=== PATIENT | male | born 1980 | race Caucasian/White ===

== ENCOUNTER → 2016-11-08 | Outpatient (REF) | payer MEDICARE, MEDICAID ==
[~2016-11-08] MED LIST: /ESCI20TA OR; /PANT40TA; ALBU17IN INH; ALLE25CA; BACI50OI EXT; BENZ1TA PO; BUDE150T; BUDE150T OR; CELE100C; CELE20TA; COGENTIN PO; DEPA250T2 PO; DEPA500T2 OR; DEPA500T2 PO; DEPAKOTE ER PO; DICL75TA PO; DOCU100C PO; DULCOLAX PO; KLON0.5T OR; LITH150C PO; LITH300C PO; MAALSUS18 PO; MINI1CAP PO; NALT50TA4 PO; NICO14DI3; NICO21DI4; NICO21DI5 TD; NO HOME MEDICATIONS; OLAN10TA2 PO; OLAN5TAB PO; OMEP20CA3 PO; PAXI10TA2 PO; PAXI20TA; PEPC20TA2; PRAZ1CAP PO; PRIL40CA PO; PROA1AER IN; PROP10TA56 PO; REVI50TA2 PO; RISP1TAB; RISP1TAB OR; RISP1TAB3 PO; RISP1TAB41 PO; RISP2TAB12; SERO1TAB PO; SERO400T OR; SERT-138 PO; SIMV10TA2; STRA80CA PO; TENE1TAB PO; TIOT18INH INH; TRAZ100T; TRAZ100T OR; TRAZ100T2 PO; TRAZ10TA PO; TRAZ150T14 PO; TRAZ50TA; TRAZ50TA2 PO; TRAZ50TA4 PO; ZOCO10TA; ZOCO5TAB OR; ZOLO100T OR; ZOLO100T PO; ZOLO50TA PO; ZYPR10TA PO; ZYPR5TAB; ZYPR5TAB2 PO; cogentin PO
[2016-11-08 13:15] LABS: ALBUMIN 3.7 GM/DL (3.2-5.2); ALBUMIN/GLOBULIN RATIO 1.37 (1.00-1.93); ALKALINE PHOSPHATASE 63 U/L (45-117); ALT/SGPT 37 U/L (12-78); ANION GAP 7 MEQ/L (8-16); AST/SGOT 20 U/L (15-37); BILIRUBIN,TOTAL 0.3 MG/DL (0.2-1.0); BLOOD UREA NITROGEN 14 MG/DL (7-18); CALCIUM LEVEL 8.8 MG/DL (8.5-10.1); CARBON DIOXIDE LEVEL 26 MEQ/L (21-32); CHLORIDE LEVEL 110 MEQ/L (98-107); CREATININE FOR GFR 1.06 MG/DL (0.70-1.30); GLOMERULAR FILTRATION RATE > 60.0 (>60); GLUCOSE, FASTING 98 MG/DL (70-105); POTASSIUM SERUM 4.3 MEQ/L (3.5-5.1); SODIUM LEVEL 143 MEQ/L (136-145); TOTAL PROTEIN 6.4 GM/DL (6.4-8.2)
[2016-11-08 13:22] LABS: LITHIUM LEVEL 0.52 MEQ/L (0.60-1.20)
== END ==
LOC: M LAB REF 11:45
PROVIDERS: ATTEND Surgery
DX: Z51.81 Encounter for therapeutic drug level monitoring (principal); Z79.899 Other long term (current) drug therapy

== ENCOUNTER 2017-02-10 09:58 | Inpatient (IN) | payer MEDICAID, MEDICARE, OTHER ==
[~2017-02-10] VITALS: Ht 172.7 cm; Wt 75.8 kg
[~2017-02-10 09:58] MED LIST changes: +BENZ-52 PO; -BENZ1TA PO; -DOCU100C PO; +DOCU100C16 PO; -PROA1AER IN; +PROAAER10 IN; -RISP1TAB41 PO; +RISP1TAB42 PO; -TRAZ150T14 PO; +TRAZ1TAB14 PO; +TRAZ50TA11 PO; -TRAZ50TA4 PO
[2017-02-10 11:02] LABS: MEAN CORPUSCULAR HGB CONC 35.2 g/dl (32.0-36.5); MEAN CORPUSCULAR VOLUME 90.9 fl (80.0-96.0)
[2017-02-10 11:32] LABS: ALBUMIN 4.7 GM/DL (3.2-5.2); ALBUMIN/GLOBULIN RATIO 1.52 (1.00-1.93); ALKALINE PHOSPHATASE 78 U/L (45-117); ALT/SGPT 27 U/L (12-78); ANION GAP 9 MEQ/L (8-16); AST/SGOT 19 U/L (15-37); BILIRUBIN,DIRECT 0.1 MG/DL (0.0-0.2); BILIRUBIN,TOTAL 0.5 MG/DL (0.2-1.0); BLOOD UREA NITROGEN 9 MG/DL (7-18); CALCIUM LEVEL 9.4 MG/DL (8.5-10.1); CARBON DIOXIDE LEVEL 24 MEQ/L (21-32); CHLORIDE LEVEL 106 MEQ/L (98-107); CREATININE FOR GFR 1.18 MG/DL (0.70-1.30); GLOMERULAR FILTRATION RATE > 60.0 (>60); GLUCOSE, FASTING 94 MG/DL (70-105); POTASSIUM SERUM 4.1 MEQ/L (3.5-5.1); SODIUM LEVEL 139 MEQ/L (136-145); TOTAL PROTEIN 7.8 GM/DL (6.4-8.2)
[2017-02-10 15:24] LABS: METHADONE URINE NEGATIVE (NEGATIVE)
[2017-02-10 18:17] VITALS: BP 124/74
[2017-02-10] MEDS ORDERED: MOM 30ML SUSPENSION UDC PO PRN (19:00)
[2017-02-10] MEDS ORDERED: MAALOX 30 ML SUSP *UDC PO PRN (19:00)
[2017-02-10] MEDS: NICOTINE 21MG/24HR 1 EA TRANSDERMAL TD SCH (19:10)
[2017-02-10] MEDS: OLANZapine 10 MG TAB PO SCH (19:38)
[2017-02-10] MEDS: OLANZapine ORAL DISINTEGRATING TAB 5MG PO PRN (19:39)
[2017-02-10] MEDS: PRAZOSIN 1 MG CAP PO SCH (19:39)
[2017-02-10] MEDS: LITHIUM CARBONATE 150 MG CAP PO SCH (19:39)
[2017-02-10] MEDS: ACETAMINOPHEN TAB 650MG DOSE (2X325MG) PO PRN (19:39)
[2017-02-10] MEDS: traZODone 50 MG TAB PO PRN (19:40)
[2017-02-11 06:53] VITALS: BP 130/75
[2017-02-11] MEDS: NICOTINE 21MG/24HR 1 EA TRANSDERMAL TD SCH (09:41)
[2017-02-11] MEDS: LITHIUM CARBONATE 150 MG CAP PO SCH ×2 (09:41→22:36)
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
[2017-02-11 18:00] VITALS: BP 128/82
[2017-02-11] MEDS: OLANZapine 10 MG TAB PO SCH (22:36)
[2017-02-11] MEDS: traZODone 50 MG TAB PO PRN (22:36)
[2017-02-11] MEDS: PRAZOSIN 1 MG CAP PO SCH (22:38)
[2017-02-12 06:24] VITALS: BP 100/51
[2017-02-12] MEDS ORDERED: INFLUENZA QUADRIVALENT PF VACCINE 0.5ML SYRINGE (90686) IM ONE (09:00)
[2017-02-12] MEDS: NICOTINE 21MG/24HR 1 EA TRANSDERMAL TD SCH (10:43)
[2017-02-12] MEDS: LITHIUM CARBONATE 150 MG CAP PO SCH ×2 (10:43→22:49)
[2017-02-12] MEDS ORDERED: chlorproMAZINE INJ 50MG/2ML AMP (J3230) IM ONE (11:00)
[2017-02-12 11:10] LABS: METHADONE URINE NEGATIVE (NEGATIVE)
--- NOTE | 2017-02-12 15:32 | MHIPNPDOC ---
[facility] Progress Note Progress Note DATE OF SERVICE: 02/12/17 HISTORY: Patient is a 36-year-old male, single, possibly homeless, unemployed and recently released from assisted, with a significant psychiatric history of oppression, PTSD, psychosis, drug abuse, prior suicide attempts, and prior inpatient mental health admissions, multiple substance use, no significant past medical history, brought in by self stating that he is feeling suspicious and paranoid that he would like to kill himself or others because he does not feel safe anymore. Patient was seen and evaluated. He reported that most of the day. He sleeps and like down in the bed and doesn't like to participate in the unit activities and do not go to any of the groups on milieu treatment. He reports that his mood is still bad and depressed and at times he feels nervous and anxious for suicidal ideations, He reports as 'I guess so'. Refused to open his eyes even while talking to Dr. staff reported that one capsule which is not marked for name of the medication or not from pharmacy has been found in his room so his personal belongings were checked for any other pills. Patient is also supposed to go to urine toxicologic Screening and discouraged about no contraband allowed in the unit. He remains irritable and gets angry easily and needs when necessary medications to calm down. Patient might be withdrawing from the drugs that he used to use and also needs a closer eye and monitoring for contraband brought into the unit. VITAL SIGNS: See below. CURRENT MEDICATIONS: See below. MENTAL STATUS EXAMINATION: 36yo male sitting in the chair, looks appropriate for the stated age, fair hygiene and grooming, increased psychomotor activities, no abnormal movements, superficially cooperative with fair eye contact, speech is normal in rate, rhythm, amount and prosody, mood is 'irritable, angry' & hostile at times, affect labile and mood congruent, thought process is tangential & circumstantial , reported suicidal and homicidal ideations, denies hallucinations, paranoid delusions elicited, aaox3, fair immediate, short term and exterminator helper memory, fair insight, judgement and impulse control DIAGNOSES: 1. MDD, recurrent, Polysubstance abuse D/O, 2.rule out bipolar disorder, rule out psychotic D/O, 3. rule out PTSD, ASSESSMENT: Patient remains to have unstable mood and aggressive MANAGEMENT PLAN:. Will titrate Zyprexa. TIME SPENT: 15 minutes. Vital Signs Vital Signs Date Time Temp Pulse Resp B/P (MAP) Pulse Ox O2 Delivery O2 Flow Rate FiO2 02/12/17 06:24 97.6 66 18 100/51 (67) 02/11/17 06:53 Room Air 02/10/17 18:17 99 Laboratory Data 24H Labs Laboratory Tests 2 02/12/17 10:30: Urine Amphetamines Screen POSITIVEH, Urine Benzodiazepines Screen NEGATIVE, Urine Opiates Screen NEGATIVE, Urine Methadone Screen NEGATIVE, Urine Barbiturates Screen NEGATIVE, Urine Phencyclidine Screen NEGATIVE, Urine Cocaine Metabolite Screen NEGATIVE, Urine Cannabinoids Screen POSITIVEH Current Medications Current Medications Acetaminophen (Tylenol Tab) 650 mg Q6HP PRN PO HEADACHE or DISCOMFORT Last administered on 02/10/17 19:39; Start 02/10/17 at 19:00; Stop 03/12/17 at 18:59 Al Hydrox/Mg Hydrox/Simethicone (Mylanta) 30 ml Q4HP PRN PO HEARTBURN/ INDIGESTION; Start 02/10/17 at 19:00; Stop 03/12/17 at 18:59 Home Med (Med Rec Complete!) ASDIRECTED XX ; Start 02/10/17 at 17:45; Stop at 17:46; Status DC [place] Carbonate ([place] Carbonate) 450 mg BID PO Last administered on 10:43; Start 02/10/17 at 21:00; Stop 03/12/17 at 20:59 Magnesium Hydroxide (Milk Of Magnesia) 30 ml DAILYPRN PRN PO CONSTIPATION; Start 02/10/17 at 19:00; Stop 03/12/17 at 18:59 Nicotine (Nicoderm Cq 21mg) 1 patch DAILY TD Last administered on 02/12/17 10: 43; Start 02/10/17 at 09:00; Stop 03/12/17 at 08:59 Olanzapine (ZyPREXA ZYDIS) 5 mg Q4HP PRN PO AGITATION Last administered on 02/10/17 19:39; Start 02/10/17 at 19:00; Stop 03/12/17 at 18:59 Olanzapine (ZyPREXA) 10 mg QHS PO Last administered on 02/11/17 22:36; Start at 21:00; Stop 03/12/17 at 20:59 Prazosin HCl (Minipress) 1 mg QHS PO Last administered on 02/11/17 22:38; Start 02/10/17 at 21:00; Stop 03/12/17 at 20:59 Trazodone HCl (Desyrel) 50 mg QHSP PRN PO INSOMNIA Last administered on 22:36; Start 02/10/17 at 19:00; Stop 03/12/17 at 18:59 Allergies Coded Allergies: No Known Allergies (Verified , 02/10/17) DEMETRIA BANKS MD Feb 12, 2017 15:32
[2017-02-12 18:00] VITALS: BP 106/50
[2017-02-12] MEDS: OLANZapine 5 MG TAB PO SCH (22:50)
[2017-02-12] MEDS: PRAZOSIN 1 MG CAP PO SCH (22:53)
[2017-02-13 07:13] VITALS: BP 93/51
--- NOTE | 2017-02-13 08:10 | HPE ---
DATE OF ADMISSION: 02/10/2017 HISTORY OF THE PRESENT ILLNESS: Please refer to psychiatric history and evaluation for further details on this admission. This examination and history is intended for medical issues which may need treatment, followup, or consult on this 36-year-old male. PRIMARY CARE PROVIDER: CLAYTON Paz ALLERGIES: No known allergies. SOCIAL HISTORY: He is single. Smokes approximately one-half pack of cigarettes per day. ETOH: None. Recreational drug use: Polysubstance abuse. PAST MEDICAL HISTORY: Post-traumatic stress disorder (PTSD). Hypercholesterolemia, diet controlled. Degenerative disc disease (DDD). Gastroesophageal reflux disease (GERD). Depression. History of suicide attempt. History of self-mutilation. Psychosis. History of polysubstance abuse. Hypertension. History of shingles, right wrist. PAST SURGICAL HISTORY: Skin grafts bilaterally to hands as a child secondary to espinoza. Colonoscopy, 12/02/2015, Dr. Penaloza. Internal hemorrhoids. LABORATORY STUDIES: CMP was normal. CBC normal. Urine was positive for amphetamines, positive for cannabinoids. Chest x-ray was normal. HOME MEDICATIONS: None. FAMILY HISTORY: Mother is alive. Father is at age 52 secondary to pneumonia. He had a history of diabetes and chronic alcoholism. He is estranged from his children. REVIEW OF SYSTEMS: Ten-system review was done and was unremarkable. PHYSICAL EXAM: A 36-year-old male in no acute distress. Height 68 inches, weight 75.8, body mass index (BMI) 25.4. Blood pressure 106/50, pulse 64, respirations 18, temperature 97.9. The patient is alert and oriented times three. Pupils are equal and reactive to light. Extraocular movements intact. Cornea and sclera clear. Conjunctivae is normal. No facial asymmetry. Pharynx: Tongue and gums pink and moist. Tongue is midline. Neck is supple without lymphadenopathy. No thyromegaly. No goiter. Chest is clear to auscultation without wheeze or retractions. Heart is regular. Abdomen benign. Bowel sounds are positive. Genital/Rectal: Not done. Extremities show equal strength, full range of motion. No cyanosis, clubbing or edema. History of cutting left forearm. EKG done 04/30/2016 showed sinus rhythm. IMPRESSION AND PLAN: Psychiatric plan per psychiatry. EKG on file. Nicotine dependence, patch available. History of degenerative disc disease. History of gastroesophageal reflux disease. History of hypertension, stable. No acute medical issues.
[2017-02-13] MEDS: NICOTINE 21MG/24HR 1 EA TRANSDERMAL TD SCH (09:16)
[2017-02-13] MEDS: LITHIUM CARBONATE 150 MG CAP PO SCH ×2 (09:16→21:26)
--- NOTE | 2017-02-13 15:22 | MHIPNPDOC ---
[facility] Progress Note Progress Note DATE OF SERVICE: 02/13/17 HISTORY: HISTORY: Patient is a 36-year-old male, single, possibly homeless, unemployed and recently released from [facility], with a significant psychiatric history of oppression, PTSD, psychosis, drug abuse, prior suicide attempts, and prior inpatient mental health admissions, multiple substance use, no significant past medical history, brought in by self stating that he is feeling suspicious and paranoid that he would like to kill himself or others because he does not feel safe anymore. Patient was seen and evaluated. He reported that most of the day, he sleeps and like down in the bed and doesn't like to participate in the unit activities and do not go to any of the groups on milieu treatment. He also reported that he did not eat his breakfast and not sure if he will be able to eat lunch, stating that he has decrease in his appetite and also concerned that 'food is not good' for him. He reports that his mood is still bad and depressed and at times he feels nervous and anxious He remains irritable and gets angry easily. Patient might be withdrawing from the drugs that he used to use and also needs a closer eye and monitoring for contraband brought into the unit. VITAL SIGNS: See below. CURRENT MEDICATIONS: See below. MENTAL STATUS EXAMINATION: 36yo male sitting in the chair, looks appropriate for the stated age, fair hygiene and grooming, increased psychomotor activities, no abnormal movements, superficially cooperative with fair eye contact, speech is normal in rate, rhythm, amount and prosody, mood is 'irritable, angry' & hostile at times, affect labile and mood congruent, thought process is tangential & circumstantial , reported suicidal and homicidal ideations, denies hallucinations, paranoid delusions elicited, aaox3, fair immediate, short term and alf memory, limited insight, judgement and impulse control DIAGNOSES: 1. MDD, recurrent, Polysubstance abuse D/O, 2.rule out bipolar disorder, rule out psychotic D/O, 3. rule out PTSD, ASSESSMENT: Patient remains to have unstable mood and aggressive MANAGEMENT PLAN:. Continue current treatment. Continue to Encourage patient to participate in the unit activities. And take care of himself TIME SPENT: 15 minutes. Vital Signs Vital Signs Date Time Temp Pulse Resp B/P (MAP) Pulse Ox O2 Delivery O2 Flow Rate FiO2 02/13/17 07:13 98.0 55 16 93/51 (65) Room Air 02/10/17 18:17 99 Current Medications Current Medications Acetaminophen (Tylenol Tab) 650 mg Q6HP PRN PO HEADACHE or DISCOMFORT Last administered on 02/10/17 19:39; Start 02/10/17 at 19:00; Stop 03/12/17 at 18:59 Al Hydrox/Mg Hydrox/Simethicone (Mylanta) 30 ml Q4HP PRN PO HEARTBURN/ INDIGESTION; Start 02/10/17 at 19:00; Stop 03/12/17 at 18:59 Home Med (Med Rec Complete!) ASDIRECTED XX ; Start 02/10/17 at 17:45; Stop at 17:46; Status DC [place] Carbonate ([place] Carbonate) 450 mg BID PO Last administered on 09:16; Start 02/10/17 at 21:00; Stop 03/12/17 at 20:59 Magnesium Hydroxide (Milk Of Magnesia) 30 ml DAILYPRN PRN PO CONSTIPATION; Start 02/10/17 at 19:00; Stop 03/12/17 at 18:59 Nicotine (Nicoderm Cq 21mg) 1 patch DAILY TD Last administered on 02/13/17 09: 16; Start 02/10/17 at 09:00; Stop 03/12/17 at 08:59 Olanzapine (ZyPREXA ZYDIS) 5 mg Q4HP PRN PO AGITATION Last administered on 02/10/17 19:39; Start 02/10/17 at 19:00; Stop 03/12/17 at 18:59 Olanzapine (ZyPREXA) 10 mg QHS PO Last administered on 02/11/17 22:36; Start at 21:00; Stop 02/12/17 at 15:31; Status DC Olanzapine (ZyPREXA) 15 mg QHS PO Last administered on 02/12/17 22:50; Start at 21:00; Stop 03/14/17 at 20:59 Prazosin HCl (Minipress) 1 mg QHS PO Last administered on 02/12/17 22:53; Start 02/10/17 at 21:00; Stop 03/12/17 at 20:59 Trazodone HCl (Desyrel) 50 mg QHSP PRN PO INSOMNIA Last administered on t 22:36; Start 02/10/17 at 19:00; Stop 03/12/17 at 18:59 Allergies Coded Allergies: No Known Allergies (Verified , 02/10/17) DEMETRIA BANKS MD Feb 13, 2017 15:22
[2017-02-13] MEDS: OLANZapine ORAL DISINTEGRATING TAB 5MG PO PRN ×2 (16:13→21:26)
[2017-02-13] MEDS: traZODone 50 MG TAB PO PRN (21:26)
[2017-02-13] MEDS: PRAZOSIN 1 MG CAP PO SCH (21:26)
[2017-02-13] MEDS: OLANZapine 5 MG TAB PO SCH (21:26)
[2017-02-13] MEDS: ACETAMINOPHEN TAB 650MG DOSE (2X325MG) PO PRN (21:27)
[2017-02-14 06:10] VITALS: BP 88/48
[2017-02-14] MEDS: LITHIUM CARBONATE 150 MG CAP PO SCH ×2 (09:40→20:50)
[2017-02-14] MEDS: NICOTINE 21MG/24HR 1 EA TRANSDERMAL TD SCH (09:41)
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
[2017-02-14 18:00] VITALS: BP 128/86
[2017-02-14] MEDS: OLANZapine 5 MG TAB PO SCH (20:49)
[2017-02-14] MEDS: traZODone 50 MG TAB PO PRN (20:50)
[2017-02-14] MEDS: OLANZapine ORAL DISINTEGRATING TAB 5MG PO PRN (20:50)
[2017-02-14] MEDS: PRAZOSIN 1 MG CAP PO SCH (20:50)
[2017-02-14] MEDS: ACETAMINOPHEN TAB 650MG DOSE (2X325MG) PO PRN (20:51)
[2017-02-15 06:44] VITALS: BP 93/47
[2017-02-15] MEDS: NICOTINE 21MG/24HR 1 EA TRANSDERMAL TD SCH (09:22)
[2017-02-15] MEDS: OLANZapine 5 MG TAB PO SCH ×2 (09:53→21:08)
--- NOTE | 2017-02-15 13:44 | MHIPNPDOC ---
[facility] Progress Note Progress Note DATE OF SERVICE: 02/15/17 HISTORY: day 6 of admission for SI and HI. VITAL SIGNS: See below. NEW TEST RESULTS: CURRENT MEDICATIONS: See below. MENTAL STATUS EXAMINATION: 36yo male lying in bed with covers over him, bearded, red hair, looks appropriate for the stated age, fair hygiene and grooming, increased psychomotor activities, no abnormal movements, superficially cooperative with fair eye contact, speech is normal in rate, rhythm, amount and prosody, mood is 'irritable, angry' & hostile at times, affect labile and mood congruent, thought process is tangential & circumstantial, presently denies suicidal and homicidal ideations, denies hallucinations, paranoid delusions elicited, aaox3, fair immediate, short term and endband sizer memory, limited insight, judgement and impulse control DIAGNOSES: 1. MDD, recurrent, Polysubstance abuse D/O, 2.rule out bipolar disorder, rule out psychotic D/O, 3. rule out PTSD 4. Antisocial personality ASSESSMENT: pt was informed on several occasions as he did not get out of bed, that he would not be referred for ongoing care if he refuses to participate in treatment at this facility. He has been in bed since admission with no therapeutic activity. he is rude when questioned and adversarial when suggestions are made. Pt started phoning his assistant city attorney and PO to find out if treatment at a rehab facility would help him with his court problems or if he should just be discharged from here. We will support his decision whatever it is. Pt adheres to medication schedule. he eats at meal times. c/o feeling over medicated. hygiene is marginal. MANAGEMENT PLAN: continue meds, observation and encouraging pt to take part in activities for his own benefit. Olanzapine reduced from 15 mg at hs to 5 mg bid which is how he says he usually takes it. It pt is visible in milieu and attending groups we will begin the referral process tomorrow. Medical data: LABORATORY STUDIES: CMP was normal. CBC normal. Urine was positive for amphetamines, positive for cannabinoids. Chest x-ray was normal. HOME MEDICATIONS: None. FAMILY HISTORY: Mother is alive. Father is at age 52 secondary to pneumonia. He had a history of diabetes and chronic alcoholism. He is estranged from his children. REVIEW OF SYSTEMS: Ten-system review was done and was unremarkable. PHYSICAL EXAM: A 36-year-old male in no acute distress. Height 68 inches, weight 75.8, body mass index (BMI) 25.4. Blood pressure 106/50, pulse 64, respirations 18, temperature 97.9. The patient is alert and oriented times three. Pupils are equal and reactive to light. Extraocular movements intact. Cornea and sclera clear. Conjunctivae is normal. No facial asymmetry. Pharynx: Tongue and gums pink and moist. Tongue is midline. Neck is supple without lymphadenopathy. No thyromegaly. No goiter. Chest is clear to auscultation without wheeze or retractions. Heart is regular. Abdomen benign. Bowel sounds are positive. Genital/Rectal: Not done. Extremities show equal strength, full range of motion. No cyanosis, clubbing or edema. History of cutting left forearm. EKG done 04/30/2016 showed sinus rhythm. IMPRESSION AND PLAN: Psychiatric plan per psychiatry. EKG on file. Nicotine dependence, patch available. History of degenerative disc disease. History of gastroesophageal reflux disease. History of hypertension, stable. No acute medical issues. TIME SPENT: 25minutes. Vital Signs Vital Signs Date Time Temp Pulse Resp B/P (MAP) Pulse Ox O2 Delivery O2 Flow Rate FiO2 02/15/17 06:44 98.0 65 18 93/47 (62) Room Air 02/10/17 18:17 99 Current Medications Current Medications Acetaminophen (Tylenol Tab) 650 mg Q6HP PRN PO HEADACHE or DISCOMFORT Last administered on 02/14/17 20:51; Start 02/10/17 at 19:00; Stop 03/12/17 at 18:59 Al Hydrox/Mg Hydrox/Simethicone (Mylanta) 30 ml Q4HP PRN PO HEARTBURN/ INDIGESTION; Start 02/10/17 at 19:00; Stop 03/12/17 at 18:59 Benztropine Mesylate (Cogentin) 1 mg QHS PO ; Start 02/15/17 at 21:00; Stop 03/17 at 20:59 Home Med (Med Rec Complete!) ASDIRECTED XX ; Start 02/10/17 at 17:45; Stop at 17:46; Status DC [place] Carbonate ([place] Carbonate) 450 mg BID PO Last administered on 20:50; Start 02/10/17 at 21:00; Stop 03/12/17 at 20:59; Status Future hold Magnesium Hydroxide (Milk Of Magnesia) 30 ml DAILYPRN PRN PO CONSTIPATION; Start 02/10/17 at 19:00; Stop 03/12/17 at 18:59 Nicotine (Nicoderm Cq 21mg) 1 patch DAILY TD Last administered on 02/15/17 09: 22; Start 02/10/17 at 09:00; Stop 03/12/17 at 08:59 Olanzapine (ZyPREXA ZYDIS) 5 mg Q4HP PRN PO AGITATION Last administered on 02/14/17 20:50; Start 02/10/17 at 19:00; Stop 03/12/17 at 18:59 Olanzapine (ZyPREXA) 5 mg BID PO Last administered on 02/15/17 09:53; Start 02/15/17 at 09:00; Stop 03/17/17 at 08:59 Olanzapine (ZyPREXA) 10 mg QHS PO Last administered on 02/11/17 22:36; Start at 21:00; Stop 02/12/17 at 15:31; Status DC Olanzapine (ZyPREXA) 15 mg QHS PO Last administered on 02/14/17 20:49; Start at 21:00; Stop 02/15/17 at 09:26; Status DC Prazosin HCl (Minipress) 1 mg QHS PO Last administered on 02/14/17 20:50; Start 02/10/17 at 21:00; Stop 03/12/17 at 20:59 Trazodone HCl (Desyrel) 50 mg QHSP PRN PO INSOMNIA Last administered on 20:50; Start 02/10/17 at 19:00; Stop 03/12/17 at 18:59 Allergies Coded Allergies: No Known Allergies (Verified , 02/10/17) Ni Waterman Feb 15, 2017 13:44
[2017-02-15 18:00] VITALS: BP 118/59
[2017-02-15] MEDS: BENZTROPINE 1 MG TAB PO SCH (21:08)
[2017-02-15] MEDS: traZODone 50 MG TAB PO PRN (21:08)
[2017-02-15] MEDS: LITHIUM CARBONATE 150 MG CAP PO SCH (21:09)
[2017-02-15] MEDS: ACETAMINOPHEN TAB 650MG DOSE (2X325MG) PO PRN (21:09)
[2017-02-15] MEDS: PRAZOSIN 1 MG CAP PO SCH (21:09)
[2017-02-15] MEDS: OLANZapine ORAL DISINTEGRATING TAB 5MG PO PRN (21:09)
[2017-02-16 06:49] VITALS: BP 92/44
[2017-02-16] MEDS: NICOTINE 21MG/24HR 1 EA TRANSDERMAL TD SCH (09:19)
[2017-02-16] MEDS: OLANZapine 5 MG TAB PO SCH ×2 (09:19→20:36)
[2017-02-16] MEDS: LITHIUM CARBONATE 150 MG CAP PO SCH ×2 (09:20→20:36)
--- NOTE | 2017-02-16 10:40 | MHIPNPDOC ---
[facility] Progress Note Progress Note DATE OF SERVICE: 02/16/17 HISTORY: day 7 of admission for SI and HI. Polysubstance abuse. VITAL SIGNS: See below. NEW TEST RESULTS: [place] level: 0.80 CURRENT MEDICATIONS: See below. MENTAL STATUS EXAMINATION: 36yo male lying in bed with covers over him, bearded , red hair, looks appropriate for the stated age, fair hygiene and grooming, increased psychomotor activities, no abnormal movements, superficially cooperative with fair eye contact, speech is normal in rate, rhythm, amount and prosody, mood is 'irritable, angry' & hostile at times, affect labile and mood congruent, thought process is tangential & circumstantial, presently denies suicidal and homicidal ideations, denies hallucinations, paranoid delusions elicited, aaox3, fair immediate, short term and terminal operator memory, limited insight, judgement and impulse control Diagnosis: 1. MDD, recurrent, Polysubstance abuse D/O, 2. rule out bipolar disorder, rule out psychotic D/O, 3. rule out PTSD 4. Antisocial personality ASSESSMENT: pt still c/o sedation even after Zyprexa lowered as a standing dose , since he took additional Zyprexa as a prn this is what likely interfered with policy writer typist's plan to lower Zyprexa . Prn will be eliminated and pt will only have olanzapine available a.m. and p.m. If he requires something for prn he will have to let policy writer typist know his symptoms so an appropriate intervention can be instituted. Pt was a little more visible in milieu yesterday but was not attending programs. He is observed viewing TV in the lounge. He is trying to get information about rehab from probation before we actually proceed with referring him. In the meantime he is encouraged to engage in as much therapeutic programming here as he can tolerate without being rude and inappropriate towards others. MANAGEMENT PLAN: continue close observation, meds changed as above and daily dose of olanzapine should not exceed 10 mg for now. TIME SPENT: 25 minutes. Vital Signs Vital Signs Date Time Temp Pulse Resp B/P (MAP) Pulse Ox O2 Delivery O2 Flow Rate FiO2 02/16/17 06:49 99.0 60 16 92/44 (60) 02/15/17 06:44 Room Air 02/10/17 18:17 99 Laboratory Data 24H Labs Laboratory Tests 2 02/15/17 16:47: [place] Level 0.80 Current Medications Current Medications Acetaminophen (Tylenol Tab) 650 mg Q6HP PRN PO HEADACHE or DISCOMFORT Last administered on 02/15/17 21:09; Start 02/10/17 at 19:00; Stop 03/12/17 at 18:59 Al Hydrox/Mg Hydrox/Simethicone (Mylanta) 30 ml Q4HP PRN PO HEARTBURN/ INDIGESTION; Start 02/10/17 at 19:00; Stop 03/12/17 at 18:59 Benztropine Mesylate (Cogentin) 1 mg QHS PO Last administered on 02/15/17 21:08 ; Start 02/15/17 at 21:00; Stop 03/17/17 at 20:59 Home Med (Med Rec Complete!) ASDIRECTED XX ; Start 02/10/17 at 17:45; Stop at 17:46; Status DC [place] Carbonate ([place] Carbonate) 450 mg BID PO Last administered on 09:20; Start 02/10/17 at 21:00; Stop 03/12/17 at 20:59; Status Future hold Magnesium Hydroxide (Milk Of Magnesia) 30 ml DAILYPRN PRN PO CONSTIPATION; Start 02/10/17 at 19:00; Stop 03/12/17 at 18:59 Nicotine (Nicoderm Cq 21mg) 1 patch DAILY TD Last administered on 02/16/17 09: 19; Start 02/10/17 at 09:00; Stop 03/12/17 at 08:59 Olanzapine (ZyPREXA ZYDIS) 5 mg Q4HP PRN PO AGITATION Last administered on 02/15/17 21:09; Start 02/10/17 at 19:00; Stop 03/12/17 at 18:59 Olanzapine (ZyPREXA) 5 mg BID PO Last administered on 02/16/17 09:19; Start 02/15/17 at 09:00; Stop 03/17/17 at 08:59 Olanzapine (ZyPREXA) 10 mg QHS PO Last administered on 02/11/17 22:36; Start at 21:00; Stop 02/12/17 at 15:31; Status DC Olanzapine (ZyPREXA) 15 mg QHS PO Last administered on 02/14/17 20:49; Start at 21:00; Stop 02/15/17 at 09:26; Status DC Prazosin HCl (Minipress) 1 mg QHS PO Last administered on 02/15/17 21:09; Start 02/10/17 at 21:00; Stop 03/12/17 at 20:59 Trazodone HCl (Desyrel) 50 mg QHSP PRN PO INSOMNIA Last administered on 21:08; Start 02/10/17 at 19:00; Stop 03/12/17 at 18:59 Allergies Coded Allergies: No Known Allergies (Verified , 02/10/17) Ni Waterman Feb 16, 2017 10:40
[2017-02-16 18:00] VITALS: BP 110/68
[2017-02-16 20:36] VITALS: BP 110/68
[2017-02-16] MEDS: BENZTROPINE 1 MG TAB PO SCH (20:36)
[2017-02-16] MEDS: traZODone 50 MG TAB PO PRN (20:36)
[2017-02-16] MEDS: PRAZOSIN 1 MG CAP PO SCH (20:36)
[2017-02-17 06:00] VITALS: BP 91/45
[2017-02-17] MEDS: NICOTINE 21MG/24HR 1 EA TRANSDERMAL TD SCH (09:36)
[2017-02-17] MEDS: OLANZapine 5 MG TAB PO SCH (09:37)
[2017-02-17] MEDS: LITHIUM CARBONATE 150 MG CAP PO SCH (09:37)
[2017-02-17] MEDS ORDERED: MINI1CAP PO (09:56)
[2017-02-17] MEDS ORDERED: BENZ-52 PO (09:56)
[2017-02-17] MEDS ORDERED: TRAZO50TA PO (09:56)
[2017-02-17] MEDS ORDERED: NICO21PAT TD (09:56)
[2017-02-17] MEDS ORDERED: OLAN5TAB PO (09:56)
[2017-02-17] MEDS ORDERED: LITH150C PO (09:56)
--- NOTE | 2017-02-17 10:07 | MHDSPDOC ---
[facility] Discharge Summary Discharge Summary DATE OF ADMISSION: Feb 10, 2017 at 17:23 DATE OF DISCHARGE: Feb 17, 2017 at 11:00 DISCHARGE DIAGNOSES: 1. MDD, recurrent, severe 2. rule out bipolar disorder, current episode depressed 3. rule out psychotic disorder 4. Substance abuse disorder - severe. 5. r/o PTSD from childhood trauma. 4. Antisocial personality REASON FOR ADMISSION:Suicidal and Homicidal ideation CONSULTANTS INVOLVED: Medicine, psychiatry, nursing, pharmacy, laboratory TREATMENT AND PROGRESS ON THE UNIT : pt was seclusive to room and required several days of prompting before he would cooperate with requests to engage with milieu. He claims he keeps to self to avoid "going off on people". He requested transfer to rehab but apparently he was to have done this months ago and there is now a warrant out for him. His mood showed little improvement on the unit. His motivation to change attitude, coping skills or response to disappointment is sorely lacking. Pt did not make any progress while here but he was cooperative to request he not be rude or threatening to others. HOSPITAL COURSE:Pt remained in bed or watched TV. He had no interest in attending therapeutic programming. He was angry and hostile during interactions with staff. He offered very little information on his situation and when told he needed to be more engaged he called his transportation security officer to see if this would be of any benefit to him. He was told by ad copy writer he would not be referred for rehab if he was not capable of interacting appropriately while here. He left the room but did not engage - only viewed television. Pt did not have any medical events during his withdrawal from methamphetamine. DISCHARGE ASSESSMENT: Pt lacks social skills. He is self-absorbed and very angry. Overall pt was uncooperative with efforts to improve his treatment and outcome. He refused to provide information necessary to further assess his situation. Patient would likely benefit from long-term inpatient treatment and substance abuse treatment. We would have liked to help patient during this hospitalization but he refused to engage in treatment. MENTAL STATUS EXAMINATION ON DISCHARGE: Patient is a 36-year old male, who is short in stature, bearded, dressed in hospital attire. Speech is spontaneous Language skills are intact Thought processes including: linear Thought content: appropriate, "I want my clothes". Abstract reasoning, and computation: not assessed at this time. Description of associations: has been good. Description of abnormal or psychotic thoughts: pt has previously denied Judgment: poor Insight: poor Orientation to person, time, surroundings Recent and remote memory: appears intact Attention span and concentration: adequate for TV Fund of knowledge: Full Mood: depressed, angry Affect: hostile, irritable. MEDICATIONS ON DISCHARGE: - olanzapine for mood stabilization, anxiety - Trazodone for insomnia. - nicotine patch for withdrawal. -Cogentin - for anti-cholinergic, anti-parkinsonism effects of olanzapine - Prazosin - for nightmares -[place]- mood, depression, antimania PLAN/FOLLOWUP ARRANGEMENTS: Pt will be transferred to the [facility] by the [place] police for violation of probation. [place] level on 02/15/17 was 0.80 ml/dl MEDICAL DATA: PAST MEDICAL HISTORY: Post-traumatic stress disorder (PTSD). Hypercholesterolemia, diet controlled. Degenerative disc disease (DDD). Gastroesophageal reflux disease (GERD). Depression. History of suicide attempt. History of self-mutilation. Psychosis. History of polysubstance abuse. Hypertension. History of shingles, right wrist. PAST SURGICAL HISTORY: Skin grafts bilaterally to hands as a child secondary to espinoza. Colonoscopy, 12/02/2015, Dr. Penaloza. Internal hemorrhoids. LABORATORY STUDIES: CMP was normal. CBC normal. Urine was positive for amphetamines, positive for cannabinoids. Chest x-ray was normal. HOME MEDICATIONS: None. FAMILY HISTORY: Mother is alive. Father is at age 52 secondary to pneumonia. He had a history of diabetes and chronic alcoholism. He is estranged from his children. REVIEW OF SYSTEMS: Ten-system review was done and was unremarkable. PHYSICAL EXAM: A 36-year-old male in no acute distress. Height 68 inches, weight 75.8, body mass index (BMI) 25.4. Blood pressure 106/50, pulse 64, respirations 18, temperature 97.9. The patient is alert and oriented times three. Pupils are equal and reactive to light. Extraocular movements intact. Cornea and sclera clear. Conjunctivae is normal. No facial asymmetry. Pharynx: Tongue and gums pink and moist. Tongue is midline. Neck is supple without lymphadenopathy. No thyromegaly. No goiter. Chest is clear to auscultation without wheeze or retractions. Heart is regular. Abdomen benign. Bowel sounds are positive. Genital/Rectal: Not done. Extremities show equal strength, full range of motion. No cyanosis, clubbing or edema. History of cutting left forearm. EKG done 04/30/2016 showed sinus rhythm. IMPRESSION AND PLAN: Psychiatric plan per psychiatry. EKG on file. Nicotine dependence, patch available. History of degenerative disc disease. History of gastroesophageal reflux disease. History of hypertension, stable. No acute medical issues. The amount of time spent in the coordination of care for this patient was approximately 30 minutes. Vital Signs/I&Os Vital Signs Date Time Temp Pulse Resp B/P (MAP) Pulse Ox O2 Delivery O2 Flow Rate FiO2 02/17/17 06:00 98.4 63 16 91/45 (60) 02/15/17 06:44 Room Air Medications Scheduled Benztropine Mesylate (Benztropine Mesylate) 1 Mg Tab, 1 MG PO QHS for eps for 7 Days, #7 [place] Carbonate ([place] Carbonate) 150 Mg Cap, 450 MG PO BID for MOOD for 7 Days, #42 Nicotine (Nicotine Transdermal Syst) 21 Mg/24 Hr Dis, 1 PATCH TD DAILY for tobacco dependence for 7 Days, #7 Olanzapine (Olanzapine) 5 Mg Tab, 5 MG PO BID for AGITATION for 7 Days, #14 Prazosin HCl (Minipress) 1 Mg Cap, 1 MG PO QHS for nightmares for 7 Days, #7 Scheduled PRN Trazodone HCl (Trazodone HCl) 50 Mg Tab, 50 MG PO QHSP PRN for INSOMNIA for 7 Days, #7 Allergies Coded Allergies: No Known Allergies (Verified , 02/10/17) Ni Waterman Feb 17, 2017 10:07
== END 2017-02-17 10:55 | DRG 751 ==
LOC: M ED 09:58 → M ED INP 17:23 → M PSY 18:10
PROVIDERS: ADMIT Psychiatry & Neurology Psychiatry; ATTEND Psychiatry & Neurology Psychiatry
DX: F33.2 Major depressive disorder, recurrent severe without psychotic features (principal); J44.9 Chronic obstructive pulmonary disease, unspecified; I10 Essential (primary) hypertension; F19.20 Other psychoactive substance dependence, uncomplicated; F43.10 Post-traumatic stress disorder, unspecified; F17.210 Nicotine dependence, cigarettes, uncomplicated; F60.2 Antisocial personality disorder; K64.8 Other hemorrhoids; E78.00 Pure hypercholesterolemia, unspecified; K21.9 Gastro-esophageal reflux disease without esophagitis; Z81.8 Family history of other mental and behavioral disorders; Z56.0 Unemployment, unspecified; Z65.2 Problems related to release from prison; Z59.0 Homelessness; Z81.1 Family history of alcohol abuse and dependence; Z91.5 Personal history of self-harm

== ENCOUNTER → 2017-04-04 | Outpatient (REF) | payer OTHER ==
[~2017-04-04] MED LIST changes: +NICO21PAT TD; +TRAZO50TA PO
[2017-04-04 13:30] LABS: ALBUMIN 4.1 GM/DL (3.2-5.2); ALBUMIN/GLOBULIN RATIO 1.58 (1.00-1.93); ALKALINE PHOSPHATASE 61 U/L (45-117); ALT/SGPT 24 U/L (12-78); ANION GAP 8 MEQ/L (8-16); AST/SGOT 21 U/L (15-37); BILIRUBIN,TOTAL 0.5 MG/DL (0.2-1.0); BLOOD UREA NITROGEN 13 MG/DL (7-18); CALCIUM LEVEL 9.2 MG/DL (8.5-10.1); CARBON DIOXIDE LEVEL 26 MEQ/L (21-32); CHLORIDE LEVEL 107 MEQ/L (98-107); CREATININE FOR GFR 1.29 MG/DL (0.70-1.30); GLOMERULAR FILTRATION RATE > 60.0 (>60); GLUCOSE, FASTING 100 MG/DL (70-105); POTASSIUM SERUM 4.4 MEQ/L (3.5-5.1); SODIUM LEVEL 141 MEQ/L (136-145); TOTAL PROTEIN 6.7 GM/DL (6.4-8.2)
[2017-04-04 13:35] LABS: LITHIUM LEVEL 0.79 MEQ/L (0.60-1.20)
== END ==
LOC: M LAB REF 12:17
PROVIDERS: ATTEND Psychiatry & Neurology Psychiatry
DX: Z51.81 Encounter for therapeutic drug level monitoring (principal); Z79.899 Other long term (current) drug therapy

== ENCOUNTER → 2017-05-23 | Outpatient (REF) | payer OTHER | LOC: M LAB REF 13:24 | PROVIDERS: ATTEND Surgery | DX: Z79.899 Other long term (current) drug therapy (principal) ==

== ENCOUNTER 2017-07-28 16:12 | Emergency (ER) | payer MEDICAID, OTHER, SELFPAY | END 2017-07-28 18:33 | disposition home or self-care (01) | LOC: M ED 16:12 | DX: Z76.5 Malingerer [conscious simulation] (principal); F99 Mental disorder, not otherwise specified; F17.210 Nicotine dependence, cigarettes, uncomplicated; F19.10 Other psychoactive substance abuse, uncomplicated; Z79.899 Other long term (current) drug therapy; Z88.8 Allergy status to other drugs, medicaments and biological substances | CPT/HCPCS: 99284 ==

== ENCOUNTER 2017-10-15 15:52 | Emergency (ER) | payer MEDICAID, MEDICARE ==
[2017-10-15] MEDS: IBUPROFEN 800 MG TAB PO (17:28)
[2017-10-15] MEDS: CLINDAMYCIN 150 MG CAP PO (17:28)
== END 2017-10-15 17:34 | disposition home or self-care (01) ==
LOC: M ED 15:52
DX: S02.5XXA Fracture of tooth (traumatic), initial encounter for closed fracture (principal); K04.7 Periapical abscess without sinus; K08.89 Other specified disorders of teeth and supporting structures; X58.XXXA Exposure to other specified factors, initial encounter; Y92.9 Unspecified place or not applicable; Y93.9 Activity, unspecified; Y99.9 Unspecified external cause status; R51 Headache; E78.00 Pure hypercholesterolemia, unspecified; K21.9 Gastro-esophageal reflux disease without esophagitis; M54.9 Dorsalgia, unspecified; M79.669 Pain in unspecified lower leg; F41.9 Anxiety disorder, unspecified; F32.9 Major depressive disorder, single episode, unspecified; F90.9 Attention-deficit hyperactivity disorder, unspecified type; F19.20 Other psychoactive substance dependence, uncomplicated; Z79.899 Other long term (current) drug therapy; Z88.8 Allergy status to other drugs, medicaments and biological substances
CPT/HCPCS: 99283

== ENCOUNTER 2018-12-23 14:34 | Emergency (ER) | payer MEDICARE, MEDICAID ==
[~2018-12-23] VITALS: Ht 172.7 cm; Wt 79.5 kg
[~2018-12-23 14:34] MED LIST changes: -/ESCI20TA OR; -/PANT40TA; +ACET-683 PO; +AUGM875T28 PO; +BACI500O74 EXT; -BACI50OI EXT; +BENZ2TAB5; +CIPRHCOTIC AD; +CLIN150C14 PO; +IBUP-1022 PO; +IBUP80TA PO; +LEXA1TAB2 OR; +LITH1TAB; +LITH45TASA; +MAGICMW MT; -NICO21DI5 TD; +NICO21DI6 TD; +OLAN15TA PO; -OMEP20CA3 PO; +OMEP20CA4 PO; +PRAM0.5T7; +PRIL20TA2; +PROT1TAB2; +TRAZ-163; +TRAZ-252 PO; +TRAZ1TAB10 PO; -TRAZ50TA11 PO; -TRAZO50TA PO
[2018-12-23 16:26] VITALS: BP 136/73
[2018-12-23] MEDS ORDERED: NORC1TAB7 PO (16:26)
[2018-12-23] MEDS ORDERED: NORCO, ANEXSIA 5/325MG TABLET (HYDROcodone/ACETAMINOPHEN) PO ONE (16:30)
[2018-12-23] MEDS ORDERED: ACET1TAB37 PO (17:18)
[2018-12-23] MEDS ORDERED: KETO10TAB PO (17:18)
== END 2018-12-23 16:33 | disposition home or self-care (01) ==
LOC: M ED 14:34
DX: H60.331 Swimmer's ear, right ear (principal); H66.41 Suppurative otitis media, unspecified, right ear; F17.210 Nicotine dependence, cigarettes, uncomplicated; Z88.8 Allergy status to other drugs, medicaments and biological substances; F11.10 Opioid abuse, uncomplicated; Z79.899 Other long term (current) drug therapy; Z79.2 Long term (current) use of antibiotics

== ENCOUNTER → 2018-12-27 | Outpatient (CLI) | payer MEDICARE, MEDICAID ==
[~2018-12-27] MED LIST changes: +ACET1TAB37 PO; +KETO10TAB PO; +NORC1TAB7 PO
[2018-12-27 14:32] LABS: HEMATOCRIT 41.9 % (42.0-52.0); HEMOGLOBIN 14.3 g/dl (13.5-17.5); MEAN CORPUSCULAR HEMOGLOBIN 31.6 pg (27.0-33.0); MEAN CORPUSCULAR HGB CONC 34.1 g/dl (32.0-36.5); MEAN CORPUSCULAR VOLUME 92.5 fl (80.0-96.0); PLATELET COUNT, AUTOMATED 282 10^3/uL (150-450); RED BLOOD COUNT 4.53 10^6/uL (4.30-6.10)
[2018-12-27 15:00] LABS: ALBUMIN 3.8 GM/DL (3.2-5.2); ALT/SGPT 24 U/L (12-78); BILIRUBIN,TOTAL 0.3 MG/DL (0.2-1.0); BLOOD UREA NITROGEN 13 MG/DL (7-18); CARBON DIOXIDE LEVEL 26 MEQ/L (21-32); CHLORIDE LEVEL 108 MEQ/L (98-107); CREATININE FOR GFR 1.14 MG/DL (0.70-1.30); GLOMERULAR FILTRATION RATE > 60.0 (>60); GLUCOSE, FASTING 79 MG/DL (70-100); LITHIUM LEVEL 0.51 MEQ/L (0.60-1.20); POTASSIUM SERUM 4.3 MEQ/L (3.5-5.1); SODIUM LEVEL 141 MEQ/L (136-145); TOTAL PROTEIN 7.1 GM/DL (6.4-8.2)
== END ==
LOC: M LAB 13:36
PROVIDERS: ATTEND Nurse Practitioner Family
DX: F31.81 Bipolar II disorder (principal)

== ENCOUNTER → 2019-01-15 | Outpatient (CLI) | payer MEDICARE, MEDICAID ==
[2019-01-15 12:40] LABS: ALBUMIN 3.7 GM/DL (3.2-5.2); ALT/SGPT 26 U/L (12-78); BILIRUBIN,TOTAL 0.4 MG/DL (0.2-1.0); BLOOD UREA NITROGEN 11 MG/DL (7-18); CALCIUM LEVEL 9.1 MG/DL (8.5-10.1); CARBON DIOXIDE LEVEL 29 MEQ/L (21-32); CHLORIDE LEVEL 109 MEQ/L (98-107); CHOLESTEROL LEVEL 202 MG/DL (<200); CREATININE FOR GFR 1.32 MG/DL (0.70-1.30); GLOMERULAR FILTRATION RATE > 60.0 (>60); GLUCOSE, FASTING 100 MG/DL (70-100); HDL CHOLESTEROL 44 MG/DL (>40); LDL CHOLESTEROL 135 MG/DL (<100); NON-HDL-C 158 MG/DL; SODIUM LEVEL 141 MEQ/L (136-145); TOTAL PROTEIN 6.6 GM/DL (6.4-8.2); TRIGLYCERIDES LEVEL 115 MG/DL (<150)
== END ==
LOC: M LAB 11:15
PROVIDERS: ATTEND Nurse Practitioner Family
DX: Z00.00 Encounter for general adult medical examination without abnormal findings (principal); E78.1 Pure hyperglyceridemia; F41.8 Other specified anxiety disorders

== ENCOUNTER → 2019-03-13 | Outpatient (CLI) | payer MEDICARE, MEDICAID ==
[2019-03-13 13:09] LABS: BASO % 0.4 % (0.0-1.0); EOS # 0.2 10^3/uL (0.0-0.5); EOS % 4.9 % (0.0-3.0); HEMATOCRIT 41.9 % (42.0-52.0); LYMPH # 1.8 10^3/uL (1.5-5.0); LYMPH % 35.8 % (24.0-44.0); MEAN CORPUSCULAR HGB CONC 33.4 g/dl (32.0-36.5); MEAN CORPUSCULAR VOLUME 95.7 fl (80.0-96.0); MONO # 0.3 10^3/uL (0.0-0.8); MONO % 6.7 % (0.0-5.0); NEUTROPHILS # 2.6 10^3/uL (1.5-8.5); PLATELET COUNT, AUTOMATED 252 10^3/uL (150-450); RED BLOOD COUNT 4.38 10^6/uL (4.30-6.10); WHITE BLOOD COUNT 4.9 10^3/uL (4.0-10.0)
[2019-03-13 13:16] LABS: HEMATOCRIT 41.9 % (42.0-52.0)
[2019-03-13 13:41] LABS: BILIRUBIN,DIRECT 0.1 MG/DL (0.0-0.2); BILIRUBIN,TOTAL 0.5 MG/DL (0.2-1.0); CALCIUM LEVEL 9.3 MG/DL (8.5-10.1); CHOLESTEROL RISK RATIO 5.307 (<5); CREATININE FOR GFR 1.56 MG/DL (0.70-1.30); LITHIUM LEVEL 1.13 MEQ/L (0.60-1.20); THYROID STIMULATING HORMONE 3.24 uIU/ML (0.358-3.740)
[2019-03-13 13:42] LABS: TOTAL 25(OH) VITAMIN D 28.5 NG/ML (30.0-100.0)
[2019-03-13 13:43] LABS: THYROGLOBULIN ANTIBODY 191.1 U/ML (<60.0)
[2019-03-13 14:06] LABS: HEMOGLOBIN A1c 4.6 %
== END ==
LOC: M LAB 11:49
PROVIDERS: ATTEND Nurse Practitioner Psychiatric/Mental Health
DX: F43.10 Post-traumatic stress disorder, unspecified (principal)

== ENCOUNTER → 2019-11-12 | Outpatient (REF) | payer MEDICARE, MEDICAID ==
[~2019-11-12] MED LIST changes: +OMEP1CAP73 PO; -OMEP20CA4 PO; -TRAZ-163; +TRAZ-257; -TRAZ10TA PO; +TRAZ1TAB12 PO
[2019-11-12 14:50] LABS: AMORPHOUS SEDIMENT SMALL (NEGATIVE); APPEARANCE, URINE TURBID (CLEAR); BACTERIA, URINE AUTO NEGATIVE (NEGATIVE); BILIRUBIN, URINE AUTO NEGATIVE (NEGATIVE); BLOOD, URINE BLOOD 1+ (NEGATIVE); COLOR, URINE YELLOW (YELLOW); GLUCOSE, URINE (UA) AUTO NEGATIVE (NEGATIVE); KETONE, URINE AUTO NEGATIVE (NEGATIVE); LEUKOCYTE ESTERASE, URINE AUTO 1+ (NEGATIVE); NITRITE, URINE AUTO NEGATIVE (NEGATIVE); PROTEIN, URINE AUTO NEGATIVE (NEGATIVE); RBC, URINE AUTO 1 /HPF (0-3); SPECIFIC GRAVITY URINE AUTO 1.012 (1.002-1.035); SQUAMOUS EPITHELIAL CELL UR AU 1 /HPF (0-6); WBC, URINE AUTO 22 /HPF (0-3)
[2019-11-12 16:10] LABS: CHLAMYDIA DNA AMPLIFICATION NEGATIVE (NEGATIVE); GC DNA AMPLIFICATION NEGATIVE (NEGATIVE)
[2019-11-13 10:03] LABS: HIV 1&2 SCREEN CENTAUR NEGATIVE (NEGATIVE)
== END ==
LOC: M SFHCPLAZ 09:12
PROVIDERS: ATTEND Family Medicine
DX: R31.0 Gross hematuria (principal)
CPT/HCPCS: 36415; 81001; 86780; 87086; 87389; 87661; G0463

== ENCOUNTER → 2019-11-15 | Outpatient (CLI) | payer MEDICARE, MEDICAID ==
[2019-11-15 15:28] LABS: HEMOGLOBIN 12.5 g/dl (13.5-17.5); MEAN CORPUSCULAR HEMOGLOBIN 26.5 pg (27.0-33.0); MEAN CORPUSCULAR HGB CONC 31.3 g/dl (32.0-36.5); MEAN CORPUSCULAR VOLUME 84.9 fl (80.0-96.0); PLATELET COUNT, AUTOMATED 273 10^3/uL (150-450); RED BLOOD COUNT 4.71 10^6/uL (4.30-6.10); WHITE BLOOD COUNT 4.5 10^3/uL (4.0-10.0)
[2019-11-15 15:45] LABS: HEMOGLOBIN A1c 5.6 %
[2019-11-15 16:03] LABS: ALBUMIN 3.9 GM/DL (3.2-5.2); ALT/SGPT 27 U/L (12-78); BILIRUBIN,DIRECT 0.1 MG/DL (0.0-0.2); BILIRUBIN,TOTAL 0.4 MG/DL (0.2-1.0); BLOOD UREA NITROGEN 10 MG/DL (7-18); CALCIUM LEVEL 9.2 MG/DL (8.5-10.1); CARBON DIOXIDE LEVEL 29 MEQ/L (21-32); CHLORIDE LEVEL 112 MEQ/L (98-107); CHOLESTEROL LEVEL 177 MG/DL (<200); CREATININE FOR GFR 1.24 MG/DL (0.70-1.30); GLOMERULAR FILTRATION RATE > 60.0 (>60); GLUCOSE, FASTING 84 MG/DL (70-100); HDL CHOLESTEROL 51 MG/DL (>40); LDL CHOLESTEROL 108 MG/DL (<100); LITHIUM LEVEL 0.62 MEQ/L (0.60-1.20); NON-HDL-C 126 MG/DL; PHOSPHORUS LEVEL 3.1 MG/DL (2.5-4.9); POTASSIUM SERUM 4.5 MEQ/L (3.5-5.1); SODIUM LEVEL 143 MEQ/L (136-145); TOTAL PROTEIN 6.9 GM/DL (6.4-8.2); TRIGLYCERIDES LEVEL 92 MG/DL (<150)
== END ==
LOC: M LAB 14:49
PROVIDERS: ATTEND Psychiatry & Neurology Child & Adolescent Psychiatry
DX: F31.11 Bipolar disorder, current episode manic without psychotic features, mild (principal); Z79.899 Other long term (current) drug therapy

== ENCOUNTER 2020-08-23 11:58 | Emergency (ER) | payer MEDICARE, MEDICAID ==
[~2020-08-23] VITALS: Ht 172.7 cm; Wt 69.9 kg
[~2020-08-23 11:58] MED LIST changes: -CLIN150C14 PO; +CLIN150C15 PO
[2020-08-23 12:59] LABS: BASO % 0.6 % (0.0-1.0); EOS # 0.2 10^3/uL (0.0-0.5); EOS % 4.6 % (0.0-3.0); HEMATOCRIT 37.9 % (42.0-52.0); HEMOGLOBIN 12.3 g/dl (13.5-17.5); LYMPH # 1.7 10^3/uL (1.5-5.0); LYMPH % 32.5 % (24.0-44.0); MEAN CORPUSCULAR HEMOGLOBIN 28.7 pg (27.0-33.0); MEAN CORPUSCULAR HGB CONC 32.5 g/dl (32.0-36.5); MEAN CORPUSCULAR VOLUME 88.3 fl (80.0-96.0); MONO # 0.4 10^3/uL (0.0-0.8); MONO % 8.5 % (2.0-8.0); NEUTROPHILS # 2.8 10^3/uL (1.5-8.5); NEUTROPHILS % 53.4 % (36.0-66.0); PLATELET COUNT, AUTOMATED 242 10^3/uL (150-450); RED BLOOD COUNT 4.29 10^6/uL (4.30-6.10); WHITE BLOOD COUNT 5.2 10^3/uL (4.0-10.0)
[2020-08-23 13:11] LABS: INR 0.92; PROTHROMBIN TIME 12.5 SECONDS (12.5-14.3)
[2020-08-23 13:12] LABS: PARTIAL THROMBOPLASTIN TIME 27.4 SECONDS (24.2-38.5)
[2020-08-23 13:29] LABS: BLOOD UREA NITROGEN 16 MG/DL (7-18); CALCIUM LEVEL 8.6 MG/DL (8.5-10.1); CARBON DIOXIDE LEVEL 25 MEQ/L (21-32); CHLORIDE LEVEL 111 MEQ/L (98-107); CREATININE FOR GFR 1.08 MG/DL (0.70-1.30); GLOMERULAR FILTRATION RATE > 60.0 (>60); GLUCOSE, FASTING 89 MG/DL (70-100); POTASSIUM SERUM 4.2 MEQ/L (3.5-5.1); SODIUM LEVEL 140 MEQ/L (136-145)
[2020-08-23] MEDS ORDERED: COLA100C5 PO (13:51)
[2020-08-23] MEDS ORDERED: PROC1AER16 PR (13:51)
[2020-08-23 14:06] VITALS: BP 126/62
== END 2020-08-23 14:11 | disposition home or self-care (01) ==
LOC: M ED 11:58
DX: K64.4 Residual hemorrhoidal skin tags (principal); Z87.19 Personal history of other diseases of the digestive system; K21.9 Gastro-esophageal reflux disease without esophagitis; G40.909 Epilepsy, unspecified, not intractable, without status epilepticus; R51.9 Headache, unspecified; F19.10 Other psychoactive substance abuse, uncomplicated; F31.9 Bipolar disorder, unspecified; F17.210 Nicotine dependence, cigarettes, uncomplicated; Z88.8 Allergy status to other drugs, medicaments and biological substances

== ENCOUNTER → 2020-10-01 | Outpatient (CLI) | payer MEDICARE, MEDICAID ==
[~2020-10-01] MED LIST changes: +COLA100C5 PO; +IBUP200C25 PO; +PROC1AER16 PR
== END ==
LOC: M LABSMTC 12:11
PROVIDERS: ATTEND Anesthesiology
DX: Z01.818 Encounter for other preprocedural examination (principal); Z11.52 Encounter for screening for COVID-19

== ENCOUNTER 2020-10-06 11:06 | Day surgery (SDC) | payer MEDICARE, MEDICAID ==
[~2020-10-06] VITALS: Ht 172.7 cm; Wt 68.7 kg
[~2020-10-06 11:06] MED LIST changes: +LR 1,000 ML IV ONE
[2020-10-06] MEDS ORDERED: ONDANSETRON 4MG/2ML VIAL As Ordered ONE (12:37)
[2020-10-06] MEDS ORDERED: SUGAMMADEX SODIUM 500 MG/5 ML VIAL (BRIDION) As Ordered ONE (12:37)
[2020-10-06] MEDS ORDERED: MIDAZOLAM INJ 2MG/2ML VIAL (J2250 PER 1MG) As Ordered ONE (12:37)
[2020-10-06] MEDS ORDERED: dexameTHASONE 4 MG/ML 1ML VIAL (J1100 PER 1MG) As Ordered ONE (12:37)
[2020-10-06] MEDS ORDERED: LIDOCAINE 2% 100MG/5ML SDV (FOR ANES.) As Ordered ONE ×2 (12:37→12:46)
[2020-10-06] MEDS ORDERED: KETOROLAC 60MG 2ML VIAL As Ordered ONE (12:37)
[2020-10-06] MEDS ORDERED: ACETAMINOPHEN 1000MG 100ML IV BTL (OFIRMEV) (J0131 PER 10MG) As Ordered ONE (12:37)
[2020-10-06] MEDS ORDERED: fentaNYL 100 MCG/2 ML INJECTION (J3010) As Ordered ONE (12:37)
[2020-10-06] MEDS ORDERED: ROCURONIUM BROMIDE 50 MG/5 ML VIAL As Ordered ONE (12:37)
[2020-10-06] MEDS ORDERED: propofoL 200 MG/20 ML VIAL As Ordered ONE ×2 (12:37→13:20)
[2020-10-06] MEDS ORDERED: BUPIVACAINE HCL 0.5% 30 ML VIAL As Ordered ONE (14:09)
[2020-10-06] MEDS ORDERED: BUPIVACAINE LIPOSOME/PF 1.3% 20ML VIAL (13.3MG/ML)(EXPAREL)(C9290 PER1MG) As Ordered ONE (14:09)
[2020-10-06] MEDS ORDERED: METOCLOPRAMIDE INJ 10MG/2ML VIAL (J2765 PER 1) IV PRN (16:30)
[2020-10-06] MEDS ORDERED: LR 1,000 ML IV SCH (16:30)
[2020-10-06] MEDS ORDERED: PERCOCET 5MG/325MG TAB PO PRN ×2 (16:30→16:35)
[2020-10-06] MEDS ORDERED: fentaNYL 100 MCG/2 ML INJECTION (J3010) IV PRN (16:30)
[2020-10-06] MEDS ORDERED: ONDANSETRON 4MG/2ML VIAL IV PRN (16:30)
[2020-10-06] MEDS ORDERED: IBUP-1022 PO (16:39)
[2020-10-06] MEDS ORDERED: OXYC1TAB23 PO (16:39)
[2020-10-06] MEDS ORDERED: COLA100C5 PO (16:39)
[2020-10-06 17:50] VITALS: BP 131/79
[2020-10-06] MEDS ORDERED: IBUPROFEN 600MG TAB PO SCH (18:00)
[2020-10-06] MEDS ORDERED: DOCUSATE SODIUM 100MG CAPSULE PO SCH (21:00)
--- NOTE | 2020-10-16 15:14 | RO ---
OPERATIVE NOTE DATE OF OPERATION: 10/06/2020 PREOPERATIVE DIAGNOSIS: Grade III hemorrhoids. POSTOPERATIVE DIAGNOSIS: Grade III hemorrhoids. PROCEDURE: Hemorrhoidectomy. SURGEON: Bogdan Mims MD ELECTRONIC SYSTEMS TECHNICIAN: ANESTHESIA: Spinal. INDICATIONS FOR PROCEDURE: The patient is a 39-year-old man with long history of hemorrhoids which have progressed to stage III. He is now for hemorrhoidectomy. DESCRIPTION OF PROCEDURE: The patient was brought to the operating room and had spinal anesthetic placed on the stretcher. He was rolled into a prone position on the operating table and positioned into a prone jackknife position. The perineum was prepped and draped in sterile fashion with the buttocks spread with tape. Examination revealed hemorrhoidal bundles in the typical positions at right posterior position, left lateral position, right anterior position. The largest of these was in the right posterior position and the smallest was the right anterior position. Initially I addressed the right posterior hemorrhoidal bundle. An apical suture of 3-0 Vicryl was placed. The cautery was then used to excise the hemorrhoidal tissues by incising the mucosa and then elevating the vascular tissues off the underlying internal sphincter muscle. Some additional vascular tissue was excised from beneath the edges of the surrounding mucosa. All of the hemorrhoidal tissues were sent together as single pathologic specimen. Once the hemorrhoidal tissues were completely excised in this area hemostasis was ensured. The mucosa above the dentate line was then closed with running locking suture of 3-0 Vicryl. The anoderm was approximated with interrupted simple sutures of 3-0 chromic. The left lateral hemorrhoidal bundle was then excised in similar fashion and closed likewise. The small anterior bundle was then also excised and closed with Vicryl. A mixture of 20 mL of 0.5% Marcaine and 20 mL of Exparel was then prepared. This was infiltrated along the surgical incision and widely around the perianal area as well. After ensuring that hemostasis was excellent a light dressing of Adaptic was placed over the anus and this was covered with a pressure dressing of fluffed gauze. This was held in place with tape. The patient tolerated the procedure well without apparent complications. He was returned to a supine position on the stretcher and taken to the recovery room in stable condition.
== END 2020-10-06 18:30 | disposition home or self-care (01) ==
LOC: M SDC 11:06
PROVIDERS: ATTEND Surgery
DX: K64.2 Third degree hemorrhoids (principal); F31.9 Bipolar disorder, unspecified; F41.9 Anxiety disorder, unspecified; F43.10 Post-traumatic stress disorder, unspecified; F17.210 Nicotine dependence, cigarettes, uncomplicated; Z88.8 Allergy status to other drugs, medicaments and biological substances
CPT/HCPCS: 46250; 88304; C9290; J0131; J1100; J1885; J2250; J2405; J3010

== ENCOUNTER 2022-04-01 19:27 | Emergency (ER) | payer MEDICARE, MEDICAID ==
[~2022-04-01] VITALS: Ht 172.7 cm; Wt 77.3 kg
[~2022-04-01 19:27] MED LIST changes: -CLIN150C15 PO; +CLIN150C17 PO; -LR 1,000 ML IV ONE; -OLAN10TA2 PO; -OLAN15TA PO; +OLAN15TA13 PO; +OLAN1TAB16 PO; +OLAN1TAB20 PO; -OLAN5TAB PO; +OXYC1TAB23 PO
[2022-04-01] MEDS ORDERED: NS 1,000 ML IV ONE (19:40)
[2022-04-01] MEDS ORDERED: BOOSTRIX/ADACEL VACCINE (DIPHTH/PERTUSS/ACELL/TETANUS) 0.5ML SYR IM ONE (19:40)
[2022-04-01] MEDS ORDERED: ISOVUE-370 76% 100ML VIAL As Ordered ONE (19:43)
[2022-04-01] MEDS ORDERED: ONDANSETRON 4MG 2ML VIAL IV ONE (19:55)
[2022-04-01 19:56] LABS: BASO % 0.4 % (0.0-1.0); EOS # 0.2 10^3/uL (0.0-0.5); EOS % 2.7 % (0.0-3.0); HEMATOCRIT 42.7 % (42.0-52.0); LYMPH # 2.6 10^3/uL (1.5-5.0); LYMPH % 35.3 % (24.0-44.0); MEAN CORPUSCULAR HEMOGLOBIN 32.5 pg (27.0-33.0); MEAN CORPUSCULAR HGB CONC 35.1 g/dl (32.0-36.5); MEAN CORPUSCULAR VOLUME 92.4 fl (80.0-96.0); MONO # 0.5 10^3/uL (0.0-0.8); MONO % 7.2 % (2.0-8.0); NEUTROPHILS # 3.9 10^3/uL (1.5-8.5); NEUTROPHILS % 53.6 % (36.0-66.0); PLATELET COUNT, AUTOMATED 240 10^3/uL (150-450); RED BLOOD COUNT 4.62 10^6/uL (4.30-6.10); WHITE BLOOD COUNT 7.4 10^3/uL (4.0-10.0)
[2022-04-01] MEDS: MORPHINE 4 MG/ML 1ML VIAL/SYRINGE IV PRN ×2 (19:58→20:31)
[2022-04-01 20:07] LABS: INR 0.85; PROTHROMBIN TIME 11.8 SECONDS (12.5-14.5)
[2022-04-01 20:08] LABS: PARTIAL THROMBOPLASTIN TIME 26.2 SECONDS (24.8-34.2)
[2022-04-01 20:29] LABS: ALT/SGPT 29 U/L (12-78); AMYLASE 70 U/L (25-115); BILIRUBIN,DIRECT < 0.1 MG/DL (0.0-0.2); BILIRUBIN,TOTAL 0.3 MG/DL (0.2-1.0); ETHYL ALCOHOL (ETHANOL) < 0.003 % (0.000-0.010); LIPASE 106 U/L (73-393); TOTAL PROTEIN 7.3 GM/DL (6.4-8.2)
[2022-04-01 20:47] LABS: RSV AMPLIFICATION NEGATIVE (NEGATIVE)
[2022-04-01] MEDS ORDERED: LIDOCAINE W/EPINEPHRINE 1% 20ML VIAL SC ONE (21:25)
[2022-04-01 22:08] VITALS: BP 137/71
== END 2022-04-01 22:20 | disposition home or self-care (01) ==
LOC: M ED 19:27 → EDBD 19:27 → M ED 22:20
DX: S00.91XA Abrasion of unspecified part of head, initial encounter (principal); S20.219A Contusion of unspecified front wall of thorax, initial encounter; S80.11XA Contusion of right lower leg, initial encounter; V13.4XXA Pedal cycle driver injured in collision with car, pick-up truck or van in traffic accident, initial encounter; F19.10 Other psychoactive substance abuse, uncomplicated; F31.9 Bipolar disorder, unspecified; Z88.8 Allergy status to other drugs, medicaments and biological substances; Z23 Encounter for immunization
CPT/HCPCS: 70450; 71045; 71260; 72125; 73590; 80047; 80076; 82077; 82150; 83605; 83690; 85025; 85610; 85730; 86850; 86900; 86901; 87631; 90471; 90715; 93041; 94760; 96361; 96374; 96375; 96376; 99285; J2270; J2405; Q9967

== ENCOUNTER → 2022-04-05 | Outpatient (REF) | payer MEDICARE, MEDICAID ==
[~2022-04-05] MED LIST changes: +HYDR50TA70; +LAMO200T3; +NICO1DIS12; +OLAN1TAB16; +PRAZ2CAP
[2022-04-05 18:26] LABS: BASO % 0.5 % (0.0-1.0); EOS # 0.2 10^3/uL (0.0-0.5); EOS % 3.6 % (0.0-3.0); HEMATOCRIT 43.6 % (42.0-52.0); HEMOGLOBIN 14.9 g/dl (13.5-17.5); LYMPH % 31.1 % (24.0-44.0); MEAN CORPUSCULAR HGB CONC 34.2 g/dl (32.0-36.5); MEAN CORPUSCULAR VOLUME 93.6 fl (80.0-96.0); MONO # 0.5 10^3/uL (0.0-0.8); MONO % 7.9 % (2.0-8.0); NEUTROPHILS # 3.7 10^3/uL (1.5-8.5); NEUTROPHILS % 56.6 % (36.0-66.0); PLATELET COUNT, AUTOMATED 254 10^3/uL (150-450); RED BLOOD COUNT 4.66 10^6/uL (4.30-6.10); WHITE BLOOD COUNT 6.5 10^3/uL (4.0-10.0)
[2022-04-05 18:50] LABS: APPEARANCE, URINE MANUAL CLEAR (CLEAR); BILIRUBIN, URINE MANUAL NEGATIVE (NEGATIVE); BLOOD URINE MANUAL NEGATIVE (NEGATIVE); COLOR, URINE MANUAL YELLOW (YELLOW); GLUCOSE, URINE (UA) MANUAL NEGATIVE (NEGATIVE); KETONE, URINE MANUAL NEGATIVE (NEGATIVE); LEUKOCYTE ESTERASE, URINE MAN NEGATIVE (NEGATIVE); NITRITE, URINE MANUAL NEGATIVE (NEGATIVE); PROTEIN, URINE MANUAL NEGATIVE (NEGATIVE); UROBILINOGEN, URINE MANUAL NORMAL (NORMAL)
[2022-04-05 19:50] LABS: HEMOGLOBIN A1c 5.2 %
[2022-04-05 20:14] LABS: ALT/SGPT 30 U/L (12-78); BILIRUBIN,TOTAL 0.5 MG/DL (0.2-1.0); BLOOD UREA NITROGEN 10 MG/DL (7-18); CALCIUM LEVEL 9.1 MG/DL (8.5-10.1); CARBON DIOXIDE LEVEL 24 MEQ/L (21-32); CHLORIDE LEVEL 109 MEQ/L (98-107); CHOLESTEROL LEVEL 209 MG/DL (<200); CHOLESTEROL RISK RATIO 3.732 (<5); GLOMERULAR FILTRATION RATE > 60.0 (>60); GLUCOSE, FASTING 90 MG/DL (70-100); HDL CHOLESTEROL 56 MG/DL (>40); LDL CHOLESTEROL 135 MG/DL (<100); NON-HDL-C 153 MG/DL; POTASSIUM SERUM 4.8 MEQ/L (3.5-5.1); SODIUM LEVEL 139 MEQ/L (136-145); TOTAL PROTEIN 7.4 GM/DL (6.4-8.2); TRIGLYCERIDES LEVEL 92 MG/DL (<150)
== END ==
LOC: M LAB REF 16:43
PROVIDERS: ATTEND Family Medicine Addiction Medicine
DX: Z00.01 Encounter for general adult medical examination with abnormal findings (principal)

== ENCOUNTER → 2022-04-06 | Outpatient (CLI) | payer MEDICARE, MEDICAID | LOC: M RAD 14:45 | DX: M25.561 Pain in right knee (principal); M25.511 Pain in right shoulder; S09.90XD Unspecified injury of head, subsequent encounter; R26.9 Unspecified abnormalities of gait and mobility ==

== ENCOUNTER 2022-04-10 16:29 | Emergency (ER) | payer MEDICARE, MEDICAID ==
[~2022-04-10] VITALS: Ht 172.7 cm; Wt 76.9 kg
[~2022-04-10 16:29] MED LIST changes: -HYDR50TA70; -LAMO200T3; -NICO1DIS12; -OLAN1TAB16; -PRAZ2CAP
[2022-04-10 16:33] VITALS: BP 150/77
[2022-04-10] MEDS ORDERED: PRAZ2CAP (16:40)
[2022-04-10] MEDS ORDERED: NICO1DIS12 (16:40)
[2022-04-10] MEDS ORDERED: LAMO200T3 (16:40)
[2022-04-10] MEDS ORDERED: HYDR50TA70 (16:40)
[2022-04-10] MEDS ORDERED: OLAN1TAB16 (16:40)
== END 2022-04-10 20:37 | disposition left against medical advice (07) ==
LOC: M ED 16:29
DX: Z53.21 Procedure and treatment not carried out due to patient leaving prior to being seen by health care provider (principal)

== ENCOUNTER 2022-04-25 15:02 | Outpatient (RCR) | payer OTHER ==
[~2022-04-25 15:02] MED LIST changes: +HYDR50TA70; +LAMO200T3; +NICO1DIS12; +OLAN1TAB16; +PRAZ2CAP
== END 2022-05-11 ==
LOC: M PT 15:02
PROVIDERS: ATTEND Nurse Practitioner Family
DX: M25.511 Pain in right shoulder (principal)

== ENCOUNTER 2022-05-26 07:00 | Outpatient (RCR) | payer OTHER | END 2022-06-11 | LOC: M PT 07:00 | PROVIDERS: ATTEND Nurse Practitioner Family | DX: M25.511 Pain in right shoulder (principal) ==

== ENCOUNTER → 2022-06-02 | Outpatient (CLI) | payer OTHER | LOC: M PLARAD 08:26 | PROVIDERS: ATTEND Physician Assistant Surgical | DX: M75.41 Impingement syndrome of right shoulder (principal); M67.813 Other specified disorders of tendon, right shoulder; M51.26 Other intervertebral disc displacement, lumbar region; M51.27 Other intervertebral disc displacement, lumbosacral region ==

== ENCOUNTER → 2022-06-07 | Outpatient (CLI) | payer OTHER | LOC: M SOG 09:37 | PROVIDERS: ATTEND Orthopaedic Surgery | DX: M54.50 Low back pain, unspecified (principal) ==

== ENCOUNTER → 2022-08-12 | Outpatient (REF) | payer MEDICAID ==
[~2022-08-12] MED LIST changes: -BENZ-52 PO; +BENZ1TAB5 PO
[2022-08-12 17:15] LABS: BASO % 0.6 % (0.0-1.0); EOS # 0.2 10^3/uL (0.0-0.5); EOS % 2.9 % (0.0-3.0); HEMATOCRIT 44.8 % (42.0-52.0); HEMOGLOBIN 15.1 g/dl (13.5-17.5); LYMPH # 2.3 10^3/uL (1.5-5.0); LYMPH % 32.3 % (24.0-44.0); MEAN CORPUSCULAR HEMOGLOBIN 31.8 pg (27.0-33.0); MEAN CORPUSCULAR HGB CONC 33.7 g/dl (32.0-36.5); MEAN CORPUSCULAR VOLUME 94.3 fl (80.0-96.0); MONO # 0.5 10^3/uL (0.0-0.8); MONO % 6.4 % (2.0-8.0); NEUTROPHILS # 4.1 10^3/uL (1.5-8.5); NEUTROPHILS % 57.4 % (36.0-66.0); PLATELET COUNT, AUTOMATED 255 10^3/uL (150-450); RED BLOOD COUNT 4.75 10^6/uL (4.30-6.10); WHITE BLOOD COUNT 7.2 10^3/uL (4.0-10.0)
[2022-08-12 17:19] LABS: ALBUMIN 4.2 G/DL (3.2-5.2); ALKALINE PHOSPHATASE 78 U/L (46-116); ALT/SGPT 24 U/L (7.0-40); AST/SGOT 27 U/L (<34); BILIRUBIN,TOTAL 0.3 MG/DL (0.3-1.2); BLOOD UREA NITROGEN 15 MG/DL (9-23); CALCIUM LEVEL 8.9 MG/DL (8.5-10.1); CARBON DIOXIDE LEVEL 26 MMOL/L (20-31); CHLORIDE LEVEL 107 MMOL/L (98-107); CHOLESTEROL LEVEL 206 MG/DL (<200); CHOLESTEROL RISK RATIO 4.07 (<5); CREATININE FOR GFR 1.15 MG/DL (0.70-1.30); GLOMERULAR FILTRATION RATE > 60.0 (>60); GLUCOSE, FASTING 76 MG/DL (60-100); HDL CHOLESTEROL 50.6 MG/DL (>40); LDL CHOLESTEROL 137.8 MG/DL (<100); NON-HDL-C 155 MG/DL; POTASSIUM SERUM 4.8 MMOL/L (3.5-5.1); SODIUM LEVEL 141 MMOL/L (136-145); TOTAL PROTEIN 6.7 G/DL (5.7-8.2); TRIGLYCERIDES LEVEL 88 MG/DL (<150)
== END ==
LOC: M LAB REF 16:31
PROVIDERS: ATTEND Nurse Practitioner Family
DX: E78.2 Mixed hyperlipidemia (principal)

== ENCOUNTER → 2022-10-18 | Outpatient (REF) | payer MEDICARE, MEDICAID, OTHER ==
[~2022-10-18] MED LIST changes: +BENZ2TAB48; -BENZ2TAB5
[2022-10-18 14:59] LABS: CHOLESTEROL RISK RATIO 5.05 (<5); HDL CHOLESTEROL 38.6 MG/DL (>40); LDL CHOLESTEROL 133.8 MG/DL (<100); NON-HDL-C 156.4 MG/DL
== END ==
LOC: M LAB REF 12:40
PROVIDERS: ATTEND Nurse Practitioner Family
DX: Z13.6 Encounter for screening for cardiovascular disorders (principal)

== ENCOUNTER → 2022-11-01 | Outpatient (REF) | payer MEDICARE, MEDICAID, OTHER | LOC: M LAB REF 16:21 | PROVIDERS: ATTEND Nurse Practitioner Family | DX: R42 Dizziness and giddiness (principal) ==

== ENCOUNTER → 2023-06-26 | Outpatient (CLI) | payer MEDICARE, MEDICAID, OTHER | LOC: M SOG 08:13 | PROVIDERS: ATTEND Orthopaedic Surgery | DX: Z53.9 Procedure and treatment not carried out, unspecified reason (principal) ==

== ENCOUNTER → 2023-07-12 | Outpatient (CLI) | payer MEDICARE, MEDICAID, OTHER | LOC: M SOG 07:58 | PROVIDERS: ATTEND Orthopaedic Surgery | DX: M25.511 Pain in right shoulder (principal) ==

== ENCOUNTER → 2023-08-01 | Outpatient (REF) | LOC: M PLAIMG 13:09 | PROVIDERS: ATTEND Internal Medicine | DX: R52 Pain, unspecified (principal) ==

== ENCOUNTER → 2023-11-08 | Outpatient (CLI) | payer MEDICARE, MEDICAID ==
[2023-11-08 11:09] LABS: BASO % 0.3 % (0.0-1.0); EOS # 0.1 10^3/uL (0.0-0.5); EOS % 2.3 % (0.0-3.0); HEMATOCRIT 45.1 % (42.0-52.0); HEMOGLOBIN 15.8 g/dl (13.5-17.5); LYMPH % 34.4 % (24.0-44.0); MEAN CORPUSCULAR VOLUME 94.2 fl (80.0-96.0); MONO # 0.4 10^3/uL (0.0-0.8); MONO % 6.6 % (2.0-8.0); NEUTROPHILS # 3.2 10^3/uL (1.5-8.5); NEUTROPHILS % 56.2 % (36.0-66.0); PLATELET COUNT, AUTOMATED 215 10^3/uL (150-450); RED BLOOD COUNT 4.79 10^6/uL (4.30-6.10); WHITE BLOOD COUNT 5.7 10^3/uL (4.0-10.0)
[2023-11-08 11:43] LABS: ALBUMIN 4.1 G/DL (3.2-5.2); ALKALINE PHOSPHATASE 78 U/L (46-116); ALT/SGPT 28 U/L (7.0-40); AST/SGOT 20 U/L (<34); BILIRUBIN,TOTAL 0.4 MG/DL (0.3-1.2); BLOOD UREA NITROGEN 11 MG/DL (9-23); CALCIUM LEVEL 9.3 MG/DL (8.5-10.1); CARBON DIOXIDE LEVEL 26 MMOL/L (20-31); CHLORIDE LEVEL 108 MMOL/L (98-107); CHOLESTEROL LEVEL 235 MG/DL (<200); CHOLESTEROL RISK RATIO 4.14 (<5); CREATININE FOR GFR 1.26 MG/DL (0.70-1.30); GLOMERULAR FILTRATION RATE > 60.0 (>60); GLUCOSE, FASTING 90 MG/DL (60-100); HDL CHOLESTEROL 56.7 MG/DL (>40); LDL CHOLESTEROL 161.9 MG/DL (<100); NON-HDL-C 178.3 MG/DL; POTASSIUM SERUM 4.5 MMOL/L (3.5-5.1); SODIUM LEVEL 138 MMOL/L (136-145); TOTAL PROTEIN 6.8 G/DL (5.7-8.2); TRIGLYCERIDES LEVEL 82 MG/DL (<150)
[2023-11-08 11:44] LABS: THYROID STIMULATING HORMONE 2.037 uIU/ML (0.55-4.78); TOTAL 25(OH) VITAMIN D 29.2 NG/ML (20.0-100.0)
[2023-11-08 12:17] LABS: HEMOGLOBIN A1c 5.1 % (4.0-6.0)
== END ==
LOC: M LAB 10:25
PROVIDERS: ATTEND Registered Nurse Psychiatric/Mental Health
DX: Z79.899 Other long term (current) drug therapy (principal)

== ENCOUNTER → 2024-04-05 | Outpatient (CLI) | payer MEDICARE, MEDICAID ==
[~2024-04-05] MED LIST changes: +LITH450T11; -LITH45TASA; -OLAN15TA13 PO; +OLAN15TA69 PO
[2024-04-05 10:21] LABS: BASO % 0.6 % (0.0-1.0); EOS # 0.2 10^3/uL (0.0-0.5); LYMPH # 1.9 10^3/uL (1.5-5.0); MEAN CORPUSCULAR HEMOGLOBIN 32.3 pg (27.0-33.0); MEAN CORPUSCULAR HGB CONC 34.9 g/dl (32.0-36.5); MEAN CORPUSCULAR VOLUME 92.7 fl (80.0-96.0); MONO # 0.4 10^3/uL (0.0-0.8); MONO % 7.9 % (2.0-8.0); NEUTROPHILS # 2.6 10^3/uL (1.5-8.5); NEUTROPHILS % 50.1 % (36.0-66.0); PLATELET COUNT, AUTOMATED 219 10^3/uL (150-450); RED BLOOD COUNT 4.64 10^6/uL (4.30-6.10); WHITE BLOOD COUNT 5.1 10^3/uL (4.0-10.0)
[2024-04-05 10:51] LABS: THYROID STIMULATING HORMONE 1.341 uIU/ML (0.55-4.78)
[2024-04-05 10:53] LABS: ALBUMIN 3.9 G/DL (3.2-5.2); ALKALINE PHOSPHATASE 95 U/L (40-129); ALT/SGPT 36 U/L (7.0-40); AST/SGOT 20 U/L (<34); BILIRUBIN,TOTAL 0.5 MG/DL (0.3-1.2); BLOOD UREA NITROGEN 15 MG/DL (9-23); CALCIUM LEVEL 9.4 MG/DL (8.5-10.1); CARBON DIOXIDE LEVEL 24 MMOL/L (20-31); CHLORIDE LEVEL 111 MMOL/L (98-107); CHOLESTEROL LEVEL 243 MG/DL (<200); CHOLESTEROL RISK RATIO 5.77 (<5); CREATININE FOR GFR 1.25 MG/DL (0.70-1.30); GLOMERULAR FILTRATION RATE > 60.0 (>60); GLUCOSE, FASTING 115 MG/DL (60-100); HDL CHOLESTEROL 42.1 MG/DL (>40); HEMOGLOBIN A1c 5.2 % (4.0-6.0); LDL CHOLESTEROL 173.9 MG/DL (<100); NON-HDL-C 200.9 MG/DL; POTASSIUM SERUM 4.2 MMOL/L (3.5-5.1); SODIUM LEVEL 138 MMOL/L (136-145); TOTAL PROTEIN 6.8 G/DL (5.7-8.2); TRIGLYCERIDES LEVEL 135 MG/DL (<150)
[2024-04-05 10:54] LABS: TOTAL 25(OH) VITAMIN D 30.4 NG/ML (20.0-100.0)
== END ==
LOC: M LAB 09:13
PROVIDERS: ATTEND Registered Nurse Psychiatric/Mental Health
DX: Z71.89 Other specified counseling (principal); Z79.899 Other long term (current) drug therapy

== ENCOUNTER → 2024-07-05 | Outpatient (REF) | payer MEDICARE, MEDICAID ==
[2024-07-05 14:53] LABS: MAGNESIUM LEVEL 1.7 MG/DL (1.8-2.4)
[2024-07-05 14:54] LABS: PERCENT SATURATION 27.5 % (19.7-50.0)
[2024-07-05 14:58] LABS: FERRITIN 82.8 NG/ML (10.5-307.3); THYROID STIMULATING HORMONE 1.112 uIU/ML (0.55-4.78)
[2024-07-05 15:00] LABS: FOLATE 11.3 NG/ML (>5.4)
== END ==
LOC: M LAB REF 13:42
PROVIDERS: ATTEND Nurse Practitioner Family
DX: G25.81 Restless legs syndrome (principal); Z79.899 Other long term (current) drug therapy

== ENCOUNTER → 2024-10-14 | Outpatient (CLI) | payer MEDICARE, MEDICAID ==
[~2024-10-14] MED LIST changes: -LITH450T11; +LITH450T17
[2024-10-14 09:46] LABS: HEMATOCRIT 40.1 % (42.0-52.0); HEMOGLOBIN 13.7 g/dl (13.5-17.5); MEAN CORPUSCULAR HEMOGLOBIN 33.3 pg (27.0-33.0); MEAN CORPUSCULAR HGB CONC 34.2 g/dl (32.0-36.5); MEAN CORPUSCULAR VOLUME 97.3 fl (80.0-96.0); PLATELET COUNT, AUTOMATED 231 10^3/uL (150-450); RED BLOOD COUNT 4.12 10^6/uL (4.30-6.10)
[2024-10-14 10:22] LABS: ALBUMIN 3.6 G/DL (3.2-5.2); BILIRUBIN,TOTAL 0.2 MG/DL (0.3-1.2); CALCIUM LEVEL 8.6 MG/DL (8.5-10.1); CHOLESTEROL RISK RATIO 4.01 (<5); CREATININE FOR GFR 1.29 MG/DL (0.70-1.30); GLOMERULAR FILTRATION RATE 70.1 (>60); HDL CHOLESTEROL 52.3 MG/DL (>40); LDL CHOLESTEROL 134.3 MG/DL (<100); MAGNESIUM LEVEL 1.6 MG/DL (1.8-2.4); NON-HDL-C 157.7 MG/DL; POTASSIUM SERUM 4.2 MMOL/L (3.5-5.1); TOTAL PROTEIN 6.1 G/DL (5.7-8.2)
== END ==
LOC: M LAB 08:44
PROVIDERS: ATTEND Registered Nurse Psychiatric/Mental Health
DX: Z79.899 Other long term (current) drug therapy (principal)